=== PATIENT | male | born 1995 | race Caucasian/White ===

== ENCOUNTER 2019-10-28 01:15 | Observation (INO) ==
[2019-10-28 01:39] LABS: Basophils # 0.1 K/mcL (0.0-0.2); Basophils % 1.1 %; Eosinophils # 0.3 K/mcL (0.0-0.6); Eosinophils % 5.4 %; Hematocrit 45.1 % (37.5-50.1); Hemoglobin 15.2 g/dL (12.9-16.9); Immature Granulocytes % 0.4 % (0-4); Lymphocytes # 2.4 K/mcL (0.6-4.6); Lymphocytes % 43.7 %; Mean Corpuscular HGB Conc 33.7 g/dL (31.6-35.5); Mean Corpuscular Hemoglobin 30.1 pg (28.0-33.3); Mean Corpuscular Volume 89.3 fL (83.0-100.0); Mean Platelet Volume 10.4 fL (9.4-12.4); Monocytes # 0.4 K/mcL (0.0-1.3); Monocytes % 7.2 %; Neutrophils # 2.4 K/mcL (1.6-8.9); Platelet Count 228 K/mcL (140-400); Red Blood Count 5.05 M/mcL (4.19-5.50); Segmented Neutrophils % 42.2 %; White Blood Count 5.6 K/mcL (4.3-11.1)
[2019-10-28 01:48] LABS: Bilirubin,Urine Negative (Negative); Blood,Urine Negative (Negative); Clarity,Urine Clear (Clear); Color,Urine Colorless (Yellow); Glucose,Urine (UA) Normal (Normal); Ketones,Urine Negative (Negative); Leukocyte Esterase,Urine Negative (Negative); Nitrite,Urine Negative (Negative); Protein,Urine Negative (Neg-Trace); Specific Gravity,Urine 1.005 (1.010-1.025); Urobilinogen,Urine Normal (Normal)
[2019-10-28 01:51] LABS: Acetaminophen < 10 mcg/mL (10-20); Alanine Aminotransferase 26 Units/L (7-52); Albumin 4.5 g/dL (3.5-5.7); Albumin/Globulin Ratio 2.1 (1.1-2.2); Alkaline Phosphatase 65 Units/L (34-104); Aspartate Amino Transferase 25 Units/L (13-39); BUN/Creatinine Ratio 12 (6-26); Bilirubin,Direct 0.1 mg/dL (0.0-0.2); Bilirubin,Indirect 0.5 mg/dL (0.0-1.0); Bilirubin,Total 0.6 mg/dL (0.3-1.0); Blood Urea Nitrogen 12 mg/dL (6-20); Calcium 9.6 mg/dL (8.6-10.3); Carbon Dioxide 27 mEq/L (23-29); Chloride 104 mEq/L (98-107); Globulin 2.1 g/dL (2.4-3.5); Glucose 97 mg/dL (70-105); Osmolality,Calculated 290 (280-300); Potassium 3.8 mEq/L (3.5-5.1); Salicylate < 2.5 mg/dL (15.0-30.0); Sodium 140 mEq/L (136-145); Total Protein 6.6 g/dL (6.4-8.9); eGFR For African Americans > 60 (> 60); eGFR For Non-African Americans > 60 (> 60)
[2019-10-28 01:59] LABS: Amphetamine Screen,Urine Negative ng/mL (Cutoff=1000); Barbiturate Screen,Urine Negative ng/mL (Cutoff=200); Benzodiazepines Screen,Urine Negative ng/mL (Cutoff=200); Cannabinoid Screen,Urine Negative ng/mL (Cutoff = 50); Cocaine Screen,Urine Negative ng/mL (Cutoff= 300); Opiate Screen,Urine Negative ng/mL (Cutoff=300); Phencyclidine Screen,Urine Negative ng/mL (Cutoff=25)
[2019-10-28 02:01] LABS: Ethanol 141 mg/dL (Less than 10)
[2019-10-28] MEDS ORDERED: 0.9 % Sodium Chloride 1,000 ML IVC ONE ×2 (05:55→06:25)
[2019-10-28] MEDS ORDERED: 0.9 % Sodium Chloride 1,000 ML ONE (05:56)
[2019-10-28] MEDS ORDERED: Ondansetron 4 MG/2 ML VIAL IVP STA (05:57)
[2019-10-28] MEDS ORDERED: Ondansetron 4 MG/2 ML VIAL ONE (05:58)
[2019-10-28 06:09] LABS: Acetaminophen < 10 mcg/mL (10-20); Ethanol 74 mg/dL (Less than 10)
[2019-10-28] MEDS ORDERED: Naloxone 0.4 MG/ML INJ IVP PRN ×2 (06:21)
[2019-10-28] MEDS ORDERED: *HR* Promethazine 25 MG/ML VIAL IVP PRN (06:21)
[2019-10-28] MEDS ORDERED: *HR* LORazepam 2 MG/ML VIAL IVP PRN ×3 (06:23→07:45)
[2019-10-28] MEDS ORDERED: Ondansetron 4 MG/2 ML VIAL IVP ONE (06:55)
[2019-10-28] MEDS: 0.9 % Sodium Chloride 1,000 ML IVC SCH ×2 (07:59→22:30)
[2019-10-28] MEDS: Folic Acid 1 MG TABLET PO SCH (07:59)
[2019-10-28 08:14] LABS: INR 1.1
[2019-10-28 08:29] LABS: BUN/Creatinine Ratio 13 (6-26); Blood Urea Nitrogen 13 mg/dL (6-20); Calcium 8.7 mg/dL (8.6-10.3); Carbon Dioxide 28 mEq/L (23-29); Chloride 110 mEq/L (98-107); Glucose 100 mg/dL (70-105); Osmolality,Calculated 292 (280-300); Potassium 4.4 mEq/L (3.5-5.1); Sodium 141 mEq/L (136-145); eGFR For African Americans > 60 (> 60); eGFR For Non-African Americans > 60 (> 60)
[2019-10-28] MEDS: Thiamine (B-1) 100 MG TABLET PO SCH (10:28)
[2019-10-29 06:57] VITALS: BP 112/72
[2019-10-29] MEDS: Folic Acid 1 MG TABLET PO SCH (08:28)
[2019-10-29] MEDS: Thiamine (B-1) 100 MG TABLET PO SCH (08:28)
[2019-10-29 09:56] LABS: Basophils % 0.6 %; Eosinophils # 0.2 K/mcL (0.0-0.6); Eosinophils % 3.9 %; Hematocrit 46.6 % (37.5-50.1); Hemoglobin 15.7 g/dL (12.9-16.9); Immature Granulocytes % 0.2 % (0-4); Lymphocytes # 1.6 K/mcL (0.6-4.6); Lymphocytes % 30.9 %; Mean Corpuscular HGB Conc 33.7 g/dL (31.6-35.5); Mean Corpuscular Hemoglobin 31.3 pg (28.0-33.3); Mean Corpuscular Volume 92.8 fL (83.0-100.0); Mean Platelet Volume 10.9 fL (9.4-12.4); Monocytes # 0.3 K/mcL (0.0-1.3); Monocytes % 6.6 %; Platelet Count 201 K/mcL (140-400); Red Blood Count 5.02 M/mcL (4.19-5.50); Red Cell Distribution Width 13.2 % (11.5-14.5); Segmented Neutrophils % 57.8 %; White Blood Count 5.1 K/mcL (4.3-11.1)
[2019-10-29 10:11] LABS: BUN/Creatinine Ratio 11 (6-26); Blood Urea Nitrogen 12 mg/dL (6-20); Calcium 9.6 mg/dL (8.6-10.3); Carbon Dioxide 28 mEq/L (23-29); Chloride 105 mEq/L (98-107); Glucose 66 mg/dL (70-105); Osmolality,Calculated 288 (280-300); Phosphorous 3.3 mg/dL (2.7-4.5); Potassium 3.5 mEq/L (3.5-5.1); Sodium 140 mEq/L (136-145); eGFR For African Americans > 60 (> 60); eGFR For Non-African Americans > 60 (> 60)
== END 2019-10-29 15:22 ==
LOC: SUATTDRO → EMEROOARM 01:15 → CDU 01:15 → SUATTDRO 07:28 → CDU 07:46 → 3BNU 15:46
PROVIDERS: ADMIT Internal Medicine; ATTEND Internal Medicine

== ENCOUNTER 2019-10-29 15:21 | Inpatient (IN) ==
[2019-10-29] MEDS ORDERED: *HR* LORazepam 2 MG/ML VIAL IM PRN (15:43)
[2019-10-29] MEDS ORDERED: haloperidoL 5 MG TABLET PO PRN (15:43)
[2019-10-29] MEDS ORDERED: MOM Conc 10 ML UD.LIQ PO PRN (15:43)
[2019-10-29] MEDS ORDERED: Ibuprofen 400 MG TABLET PO PRN (15:43)
[2019-10-29] MEDS ORDERED: Haloperidol Lactate 5 MG/ML VIAL IM PRN (15:43)
[2019-10-29] MEDS ORDERED: *HR* LORazepam 1 MG TABLET PO PRN (15:43)
[2019-10-29] MEDS ORDERED: Mag Hydrox/Al Hydrox/Simeth 30 ML UDC PO PRN (15:43)
[2019-10-29] MEDS: traZODone 50 MG TABLET PO PRN (20:28)
[2019-10-29] MEDS: hydrOXYzine pamoate 25 MG CAPSULE PO PRN (20:28)
[2019-10-30] MEDS: ARIPiprazole 5 MG TABLET PO SCH (09:30)
[2019-10-30] MEDS: traZODone 50 MG TABLET PO PRN (20:15)
[2019-10-30] MEDS: hydrOXYzine pamoate 25 MG CAPSULE PO PRN (20:15)
[2019-10-31] MEDS: ARIPiprazole 5 MG TABLET PO SCH (07:52)
[2019-10-31 08:32] VITALS: BP 135/81
== END 2019-10-31 09:10 | disposition home or self-care (01) | DRG 881 ==
LOC: 1ANU 15:21
PROVIDERS: ADMIT Psychiatry & Neurology Psychiatry; ATTEND Psychiatry & Neurology Psychiatry